=== PATIENT | female | born 1955 | race Two or more races ===

== ENCOUNTER 2019-11-01 12:00 | Outpatient (CLI) | payer OTHER | END 2019-11-01 12:04 | disposition home or self-care (01) | LOC: NUCLEAR 12:00 | PROVIDERS: ATTEND Internal Medicine Cardiovascular Disease | DX: I87.2 Venous insufficiency (chronic) (peripheral) (principal) ==

== ENCOUNTER 2019-12-29 09:41 | Outpatient (CLI) | payer OTHER | END 2019-12-29 09:50 | disposition home or self-care (01) | LOC: RAD 09:41 → MAMO-SONO 10:15 | PROVIDERS: ATTEND Internal Medicine Cardiovascular Disease | DX: M12.862 Other specific arthropathies, not elsewhere classified, left knee (principal) ==

== ENCOUNTER 2022-07-12 08:50 | Outpatient (CLI) | payer OTHER | END 2022-07-12 08:59 | disposition home or self-care (01) | LOC: NUCLEAR 08:50 | PROVIDERS: ATTEND Internal Medicine Cardiovascular Disease | DX: I87.2 Venous insufficiency (chronic) (peripheral) (principal) ==

== ENCOUNTER 2022-07-12 09:30 | Outpatient (CLI) | payer OTHER | END 2022-07-12 09:37 | disposition home or self-care (01) | LOC: SONOGRAMA 09:30 | PROVIDERS: ATTEND Internal Medicine Cardiovascular Disease | DX: E03.9 Hypothyroidism, unspecified (principal) ==

== ENCOUNTER → 2023-05-13 10:26 | Outpatient (CLI) | payer OTHER | END | disposition home or self-care (01) | LOC: NUCLEAR 10:26 | PROVIDERS: ATTEND Internal Medicine Cardiovascular Disease | DX: G45.9 Transient cerebral ischemic attack, unspecified (principal) ==

== ENCOUNTER 2023-08-11 10:00 | Outpatient (CLI) | payer OTHER | END 2023-08-11 10:08 | disposition home or self-care (01) | LOC: SONOGRAMA 10:00 | PROVIDERS: ATTEND Internal Medicine Endocrinology, Diabetes & Metabolism | DX: E04.1 Nontoxic single thyroid nodule (principal) ==

== ENCOUNTER 2024-11-08 10:20 | Outpatient (CLI) | payer OTHER | END 2024-11-08 10:30 | disposition home or self-care (01) | LOC: SONOGRAMA 10:20 | PROVIDERS: ATTEND Internal Medicine Endocrinology, Diabetes & Metabolism | DX: E04.1 Nontoxic single thyroid nodule (principal); M81.0 Age-related osteoporosis without current pathological fracture; E78.2 Mixed hyperlipidemia; Z68.29 Body mass index [BMI] 29.0-29.9, adult; E06.3 Autoimmune thyroiditis; I11.9 Hypertensive heart disease without heart failure ==

== ENCOUNTER 2025-01-04 10:03 | Outpatient (CLI) | payer OTHER | END 2025-01-04 10:05 | disposition home or self-care (01) | LOC: NUCLEAR 10:03 | DX: R09.89 Other specified symptoms and signs involving the circulatory and respiratory systems (principal); I10 Essential (primary) hypertension ==

== ENCOUNTER 2025-01-05 08:15 | Outpatient (CLI) | payer OTHER | END 2025-01-05 08:16 | disposition home or self-care (01) | LOC: NUCLEAR 08:15 | DX: I87.2 Venous insufficiency (chronic) (peripheral) (principal); I82.529 Chronic embolism and thrombosis of unspecified iliac vein ==

== ENCOUNTER 2025-01-06 08:42 | Outpatient (CLI) | payer OTHER | END 2025-01-06 08:48 | disposition home or self-care (01) | LOC: NUCLEAR 08:42 | PROVIDERS: ATTEND Internal Medicine Interventional Cardiology | DX: I70.209 Unspecified atherosclerosis of native arteries of extremities, unspecified extremity (principal) ==

== ENCOUNTER 2025-02-17 10:03 | Outpatient (CLI) | payer OTHER | END 2025-02-17 10:04 | disposition home or self-care (01) | LOC: NUCLEAR 10:03 | DX: M81.6 Localized osteoporosis [Lequesne] (principal); M81.0 Age-related osteoporosis without current pathological fracture; M85.80 Other specified disorders of bone density and structure, unspecified site ==